=== PATIENT | female | born 1960 | race Caucasian/White ===

== ENCOUNTER 2018-07-22 13:32 | Emergency (ER) | payer OTHER ==
[~2018-07-22] VITALS: Ht 157.5 cm; Wt 57.2 kg
[2018-07-22 13:32] VITALS: BP_SYST 123
[2018-07-22 15:15] VITALS: BP_SYST 123
== END 2018-07-22 15:15 | disposition home or self-care (01) ==
LOC: SED 13:32
DX: J02.9 Acute pharyngitis, unspecified (principal); H92.09 Otalgia, unspecified ear; R05 Cough; I25.2 Old myocardial infarction; Z86.73 Personal history of transient ischemic attack (TIA), and cerebral infarction without residual deficits; Z90.49 Acquired absence of other specified parts of digestive tract; Z90.89 Acquired absence of other organs; Z90.710 Acquired absence of both cervix and uterus
CPT/HCPCS: 99283